=== PATIENT | male | born 2005 | race African-American/Black ===

== ENCOUNTER 2025-01-20 08:23 | Emergency (ER) | payer OTHER ==
[~2025-01-20] VITALS: Ht 177.8 cm; Wt 64.0 kg
[2025-01-20 08:27] VITALS: PULSE 52; RESP 16; O2SAT 99
[2025-01-20 08:38] VITALS: BP 135/79; TEMP 36.8; O2SAT 100
== END 2025-01-20 10:17 | disposition left against medical advice (07) ==
LOC: ER 08:23
DX: R42 Dizziness and giddiness (principal); R53.1 Weakness
CPT/HCPCS: 99281